=== PATIENT | male | born 1980 | race Caucasian/White ===

== ENCOUNTER 2017-01-02 12:40 | Emergency (ER) | payer OTHER | END 2017-01-02 14:48 | disposition home or self-care (01) | LOC: FER 12:40 | DX: M47.26 Other spondylosis with radiculopathy, lumbar region (principal); I10 Essential (primary) hypertension; E11.9 Type 2 diabetes mellitus without complications; F17.210 Nicotine dependence, cigarettes, uncomplicated; Z87.828 Personal history of other (healed) physical injury and trauma | CPT/HCPCS: 72131; J1100; J1885 ==